=== PATIENT | male | born 1985 | race Caucasian/White ===

== ENCOUNTER → 2016-12-16 | Day surgery (SDC) | payer BC | END | disposition home or self-care (01) | LOC: FIMAGING 07:35 | PROVIDERS: ATTEND Internal Medicine Infectious Disease | PROC: 02HV33Z Insertion of Infusion Device into Superior Vena Cava, Percutaneous Approach (ICD-10-PCS; principal; 2016-12-16) | DX: M27.2 Inflammatory conditions of jaws (principal); Z79.2 Long term (current) use of antibiotics | CPT/HCPCS: 36569; 77001; C1751 ==